=== PATIENT | female | born 1955 | race Caucasian/White ===

== ENCOUNTER 2016-11-26 12:49 | Outpatient (RCR) | payer OTHER | END 2017-01-02 13:08 | LOC: WSOH 12:49 | DX: S00.93XA Contusion of unspecified part of head, initial encounter (principal); S02.5XXA Fracture of tooth (traumatic), initial encounter for closed fracture; S00.511A Abrasion of lip, initial encounter; W01.10XA Fall on same level from slipping, tripping and stumbling with subsequent striking against unspecified object, initial encounter; Y99.0 Civilian activity done for income or pay ==

== ENCOUNTER → 2016-12-24 | Outpatient (CLI) | payer OTHER ==
[~2016-12-24] MED LIST: PERCOCET 325 MG1 TA2 PO; ULTRAM 50MG TAB50 MG PO
== END ==
LOC: ZCOL.LAB 16:20
DX: Z02.89 Encounter for other administrative examinations (principal)

== ENCOUNTER → 2017-01-30 | Outpatient (CLI) | payer BC | LOC: MC.RAD 14:57 | DX: Z12.31 Encounter for screening mammogram for malignant neoplasm of breast (principal) ==

== ENCOUNTER 2017-04-18 19:38 | Emergency (ER) | payer OTHER ==
[~2017-04-18] VITALS: Ht 172.7 cm; Wt 93.2 kg
[2017-04-18 19:41] VITALS: TEMP 98
[2017-04-18] MEDS ORDERED: PERCOCET 325 MG1 TA2 PO (20:49)
[2017-04-18] MEDS ORDERED: ULTRAM 50MG TAB50 MG PO (20:49)
[2017-04-18 22:19] VITALS: BP 138/83; PULSE 57
== END 2017-04-18 22:20 | disposition home or self-care (01) ==
LOC: COL.ER 19:38
DX: S09.90XA Unspecified injury of head, initial encounter (principal); S53.115A Anterior dislocation of left ulnohumeral joint, initial encounter; Z98.890 Other specified postprocedural states; W01.198A Fall on same level from slipping, tripping and stumbling with subsequent striking against other object, initial encounter; Y92.009 Unspecified place in unspecified non-institutional (private) residence as the place of occurrence of the external cause
CPT/HCPCS: J1170; J2704

== ENCOUNTER 2017-05-13 15:00 | Outpatient (RCR) | payer OTHER | END 2017-07-02 16:44 | LOC: WSOT 15:00 | DX: S53.145A Lateral dislocation of left ulnohumeral joint, initial encounter (principal) ==